=== PATIENT | male | born 1990 | race Two or more races ===

== ENCOUNTER 2022-10-03 14:41 | Emergency (ER) | payer MEDICAID, OTHER ==
[~2022-10-03] VITALS: Ht 157.5 cm; Wt 62.2 kg
[2022-10-03 18:48] VITALS: BP 121/74
[2022-10-03] MEDS ORDERED: KETOROLAC TROMETH 30 MG/ML 1ML VIAL IM ONE (19:30)
== END 2022-10-03 20:17 | disposition home or self-care (01) ==
LOC: ER 14:41 → EDBD 14:41 → ER 20:16
DX: M25.511 Pain in right shoulder (principal); H61.23 Impacted cerumen, bilateral; J45.909 Unspecified asthma, uncomplicated; V43.62XA Car passenger injured in collision with other type car in traffic accident, initial encounter; Y93.89 Activity, other specified; Y92.89 Other specified places as the place of occurrence of the external cause; Y99.8 Other external cause status
CPT/HCPCS: 69209; 73030; 96372; 99283; J1885

== ENCOUNTER 2023-03-04 17:12 | Emergency (ER) | payer SELFPAY ==
[~2023-03-04] VITALS: Ht 172.7 cm; Wt 70.0 kg
[2023-03-04 18:56] VITALS: BP 125/87; PULSE 81; RESP 18; TEMP 96.9; O2SAT 100
[2023-03-04] MEDS ORDERED: AMOX875T4 PO (19:27)
[2023-03-04] MEDS ORDERED: IBUP-1456 PO (19:27)
[2023-03-04] MEDS ORDERED: KETOROLAC TROMETH 60MG/2ML VIAL IM ONE (19:30)
[2023-03-04] MEDS ORDERED: BENZOCAINE (DENTAL) 20 % SPRAY 60ML MT ONE (19:30)
== END 2023-03-04 20:04 | disposition home or self-care (01) ==
LOC: ER 17:12
DX: S02.5XXA Fracture of tooth (traumatic), initial encounter for closed fracture (principal); K04.7 Periapical abscess without sinus; J45.909 Unspecified asthma, uncomplicated; Z79.899 Other long term (current) drug therapy; X58.XXXA Exposure to other specified factors, initial encounter; Y93.89 Activity, other specified; Y92.89 Other specified places as the place of occurrence of the external cause; Y99.8 Other external cause status
CPT/HCPCS: 96372; 99283; J1885

== ENCOUNTER 2024-06-30 10:54 | Emergency (ER) | payer MEDICAID ==
[~2024-06-30] VITALS: Ht 172.7 cm; Wt 68.3 kg
[~2024-06-30 10:54] MED LIST: AMOX875T4 PO; IBUP-1456 PO
[2024-06-30 11:38] VITALS: BP 118/82; PULSE 106; RESP 18; TEMP 98.8; O2SAT 98
[2024-06-30] MEDS: KETOROLAC TROMETH 60MG/2ML VIAL IM ONE (11:45)
--- NOTE | 2024-06-30 11:54 | ED.PDOC ---
GI ASSESSMENT HPI Comments A 33 YEAR OLD MALE PRESENTS TO THE ED WITH CHIEF COMPLAINT OF RECTAL PAIN. PATIENT REPORTS THAT HE HAS BEEN EXPERIENCING RECTAL PAIN FOR THE PAST 3 DAYS. PATIENT RELAYS THAT THERE IS NOTED TO BE WHAT HE BELIEVES TO BE HEMORRHOIDS AT HIS RECTUM. PATIENT STATES HE TRIED SOAKING HIS RECTUM WITH HOT WATER AND THERE WAS NO RELIEF. PATIENT DENIES ANY RECTAL BLEEDING, FEVER, CHILLS, OR ABDOMINAL PAIN. NO OTHER SYMPTOMS REPORTED AT THIS TIME OF CARE. Chief Complaint: Rectal Pain Time Seen by MD: 11:45 Primary Care Provider: NONE Reviewed Notes: Nurses Notes, Medications, Allergies Allergies: Coded Allergies: NO KNOWN ALLERGIES (Unverified , 10/03/22) Home Meds Active Scripts Ibuprofen (Ibuprofen) 800 Mg Tab, 1 TAB PO TID PRN, #30 TAB 0 Refills Prov:DENY HERNANDEZ 03/04/23 Amoxicillin & Pot Clavulanate (Amoxicillin/Potassium Cla) 875 Mg Tab, 1 TAB PO BID for 7 Days, #14 TAB 0 Refills Prov:DENY HERNANDEZ 03/04/23 Information Source: Patient, Spouse Mode of Arrival: Wheelchair Timing: Days Duration: Since onset Prehospital treatment: None Quality: Sharp Vomitus: None Stool: Hemorrhoids Severity: Moderate Recent: None Recent Hx of: None Pain Location: Other (RECTUM) Modifying Factors: Nothing Associated sign and symptoms: Other (RECTAL PAIN) Past Medical History PAST MEDICAL HISTORY: Asthma Surgical History: Unknown Family History Family History: Reviewed,noncontributory to illness, Unknown Social History Smoker: Non-Smoker Alcohol: Denies ETOH Use Drugs: Denies Drug Use Lives In: Home Constitutional: denies: chills, diaphoresis, fatigue, fever, malaise, sweats, weakness, others EENTM: denies: blurred vision, double vision, ear bleeding, ear discharge, ear drainage, ear pain, ear ringing, eye pain, eye redness, hearing loss, mouth pain, mouth swelling, nasal discharge, nose bleeding, nose congestion, nose pain, photophobia, tearing, throat pain, throat swelling, voice changes, others Respiratory: denies: cough, hemoptysis, orthopnea, SOB at rest, shortness of breath, SOB with excertion, stridor, wheezing, others Cardiovascular: denies: chest pain, dizzy spells, diaphoresis, Dyspnea on exertion, edema, irregular heart beat, left arm pain, lightheadedness, palpitations, PND, syncope, others Gastrointestinal: reports: rectal pain; denies: abdomen distended, abdominal pain, blood streaked bowels, constipated, diarrhea, dysphagia, difficulty swallowing, hematemesis, melena, nausea, poor appetite, poor fluid intake, rectal bleeding, vomiting, others Genitourinary: denies: burning, dysuria, flank pain, frequency, hematuria, incontinence, penile discharge, penile sore, pain, testicle pain, testicle swelling, urgency, others Neurological: denies: dizziness, fainting, headache, left sided numbness, left sided weakness, numbness, paresthesia, pre-existing deficit, right sided numbness, right sided weakness, seizure, speech problems, tingling, tremors, weakness, others Musculoskeletal: denies: back pain, gout, joint pain, joint swelling, muscle pain, muscle stiffness, neck pain, others Integumetry: reports: lumps (RECTAL REGION ); denies: bruises, change in color, change in hair/nails, dryness, laceration, lesions, rash, wounds, others Allergic/Immunocompromised: denies: Difficulty Healing, Frequent Infections, Hives, Itching, others Hematologic/Lymphatic: denies: anemia, blood clots, easy bleeding, easy bruising, swollen glands, others Endocrine: denies: excessive hunger, excessive sweating, excessive thirst, excessive urination, flushing, intolerance to cold, intolerance to heat, unexplained weight gain, unexplained weight loss, others Psychiatric: denies: anxiety, bipolar disorder, depression, hopeless, panic disorder, schizophrenia, sleepless, suicidal, others All Other Systems: Reviewed and Negative Physical Exam General Appearance: Mild Distress, Normal, Other (ANXIOUS ) HEENT: Normal ENT Inspection, PERRL/EOMI, Pharynx Normal Neck: Full Range of Motion, Non-Tender, Normal, Normal Inspection Respiratory: Chest Non-Tender, Lungs Clear, No Accessory Muscle Use, No Respiratory Distress, Normal Breath Sounds Cardiovascular: No Edema, No JVD, No Murmur, No Gallop, Normal Peripheral Pulses, Regular Rate/Rhythm Breast Exam: Deferred Gastrointestinal: No Organomegaly, Non Tender, No Pulsatile Mass, Normal Bowel Sounds, Soft Genitalia: Deferred Pelvic: Normal External Exam Rectal: Heme negative stool, Hemorrhoids, Normal rectal tone (3 SMALL EXTERNAL HEMORRHOIDS, NO RECTAL BLEEDING AND BLOOD CLOTS. ) Extremities: No calf tenderness, Normal capillary refill, Normal inspection, Normal range of motion, Non-tender, No pedal edema Musculoskeletal : Apperance: Normal Neurologic: Alert, aquatics lifeguard II-XII nml as Tested, No Motor Deficits, Normal Affect, Normal Mood, No Sensory Deficits Cerebellar Function: Normal Reflexes: Normal Skin: Dry, Normal Color, Warm Peripheral Pulses: 2+ carotid (R), 2+ carotid (L) Lymphatic: No Adenopathy Was a procedure done? Was a procedure done?: No GI differential Dx Differential Diagnosis: Constipation, N/A Other Differential Diagnosis HEMORRHOIDS X-Ray, Labs, Meds, VS Vital Signs Date Time Temp Pulse Resp B/P (MAP) Pulse Ox O2 Delivery O2 Flow Rate FiO2 06/30/24 11:38 98.8 106 18 118/82 (94) 98 98.8 06/30/24 11:38 106 18 98 Room Air 06/30/24 11:06 98.8 106 18 118/82 (94) 98 98.8 Current Medications Medications (Trade) Dose Ordered Sig/Haseeb Route Start Time Stop Time Status Last Admin Ketorolac Tromethamine (Toradol Injection) 60 mg ONCE ONCE IM 06/30/24 11:45 06/30/24 11:46 DC 06/30/24 11:45 X-Ray, Labs, Meds, VS Comment EXTERNAL MEDICAL RECORDS REVIEWED: [NONE] INDEPENDENT HISTORIANS: [NONE] SOCIAL DETERMINANTS OF HEALTH: [NONE] LABS ORDERED: NONE REVIEWED AND INTERPRETED RESULTS: NONE IMAGING ORDERED: NONE TREATMENTS ORDERED: TORADOL 60MG IM PROCEDURES PERFORMED: NONE CRITICAL CARE TIME: NONE I HAVE DISCUSSED THE PATIENT WITH THE ATTENDING PHYSICIAN DR. SHELL AND HE AGREES WITH THE PATIENT'S PLAN OF CARE AND DISPOSITION. BASED ON HISTORY OF PRESENT ILLNESS, AND PHYSICAL EXAM, PATIENT WILL BE DISCHARGED HOME. DISCUSSED PLAN FOR DISCHARGE HOME WITH RX IBUPROFEN, ANUSOL, AND COLACE. MEDICATION WARNINGS GIVEN. SHARED DECISION MAKING: DISCUSSED WITH PATIENT THAT THEIR WORKUP WAS NORMAL. PATIENT INSTRUCTED TO FOLLOW UP WITH PRIMARY CARE PROVIDER IN 1-2 DAYS FOR RE- EVALUATION OF SYMPTOMS. PATIENT VERBALIZES UNDERSTANDING TO RETURN TO ED FOR NEW OR WORSENING SYMPTOMS OR IF FOLLOW UP WITH PCP CANNOT BE OBTAINED. PATIENT FEELS COMFORTABLE GOING HOME AT THIS TIME. ALL QUESTIONS ADDRESSED AT TIME OF DISCHARGE. Time of 1ST Reevaluation: 12:20 Reevaluation 1ST: Improved Patient Education/Counseling: Diagnosis, Treatment, Need For Follow Up Family Education/Counseling: Diagnosis, Treatment, Need For Follow Up Medical Screening: No EMC Exist At This Time Departure 1 Departure Time of Disposition: 12:20 Impression: Primary Impression: External hemorrhoids Disposition: HOME / SELF CARE / HOMELESS Condition: Stable Additional Instructions: FOLLOW-UP WITH PCP IN 1 TO 2 DAYS. TAKE MEDICATIONS PRESCRIBED. RETURN TO ED FOR ANY NEW OR WORSENING SYMPTOMS. e-Prescriptions Docusate Sodium (Colace) 100 Mg Cap 1 CAP PO BID, #30 CAP Prov: JOELLE ARTEAGA 06/30/24 Ibuprofen (Ibuprofen) 800 Mg Tab 1 TAB PO TID, #30 TAB Prov: JOELLE ARTEAGA 06/30/24 Hydrocortisone Acetate (Anusol-Hc) 25 Mg Sup 1 SUPP OH BID, #20 SUPP Prov: JOELLE ARTEAGA 06/30/24 Discharged With: Self, Spouse Critical Care Note Critical Care Time?: No Stability Stability form required: No Heart Score Heart Score: Heart Score Response (Comments) Value History N/A 0 EKG N/A 0 Age N/A 0 Risk Factors N/A 0 Troponin N/A 0 Total 0 I personally scribed for JOELLE ARTEAGA ([email or web address]) on 06/30/24 at 11:54. Electronically submitted by Billy Borrego ([email or web address]). I personally scribed for JOELLE ARTEAGA ([email or web address]) on 06/30/24 at 11:55. Electronically submitted by iBlly Borrego ([email or web address]). JOELLE ARTEAGA Jun 30, 2024 11:54
[2024-06-30] MEDS ORDERED: DOCU-94 PO (12:03)
[2024-06-30] MEDS ORDERED: HYDR25SU21 PR (12:03)
[2024-06-30] MEDS ORDERED: IBUP-1456 PO (12:03)
== END 2024-06-30 12:09 | disposition home or self-care (01) ==
LOC: ER 10:59
DX: K64.4 Residual hemorrhoidal skin tags (principal); J45.909 Unspecified asthma, uncomplicated; Z79.899 Other long term (current) drug therapy
CPT/HCPCS: 96372; 99283; J1885